=== PATIENT | female | born 1960 | race Caucasian/White ===

== ENCOUNTER 2022-06-21 10:00 | Outpatient (RCR) | payer BC, SELFPAY ==
--- NOTE | 2022-04-24 13:56 | HP.OTEVAL ---
Patient's Visit Information RENE FARRELL is a 61 year old F, referred to Occupational Therapy by Dr. Urbano Hicks MD, with a diagnosis of LT CMC Arthroplasty. Date of Evaluation: 04/24/22 Occupational Therapist: Ada Lopez - Subjective Pt is a 61 y.o female who had R thumb CMC arthroplasty on 04/14/22 d/t primary osteoarthritis of R CMC joint w/ Dr. Hicks in [facility]; failed attempts at conservative management; Pt is retired but she need continues to take care of household maintenance and has hobbies she wishes to return to. She currently has to assist w/ family member in the hospital -she wishes to limit therapy to 1x/week if possible. Pt currently requiring splint post op. - Pain Right Hand 1 Pain Intensity Range: 3 - Objective Pt presents in soft cast and SELVIN wrap. Pt has sutures removed with slightly dried blood around incision; swelling in thenar eminence. - ROM Opposition: 4 ROM Comments: shoulder/elbow WFL; wrist slightly limited d/t pain/stiffness; - Sensation Thumb: CMC 34 IP 46 - Quick DASH-Disab of Arm,Shoulder& Hand Quick DASH Score: 63.6350 - Goals Goal:: Pt will demo rug sizer strength WFL in order to complete self-care tasks; measurements to be added when appropriate Goal:: Pt will improve L thumb opposition to kapanji score 6 Goal:: Pt will report 0/10 pain during light functional tasks Goal:: Pt will demo understanding of ongoing HEP changes to maximize potential and recovery - Rehabilitation General Assessment: Pt presents s/p Lt CMC arthroplasty requiring splint from Dr. Hicks w/ [facility]. Pt presents with slight swelling, pain, and general decreased ROM in wrist and thumb. Pt would benefit from cont. therapy services 1-2x/week for 8 weeks to progress patient through post op protocol and maximize repair and function. Rehabilitation Potential: Excellent - Anticipated Interventions A/AAROM/PROM, Strengthening, Edema Control, Scar Care, Massage, Triggerpoint Release, Wound Care, Modalities, Orthoses, Joint Protection/Energy Conservation, Ergonomic Education, Fine Motor Coord/Demetris, ADL Training, Home Program - Visit Plan Frequency: 1-2x /Week Duration: 8 weeks General Plan: Pt would benefit from cont. therapy services 1-2x/week for 8 weeks to maximize recovery and independence. TEXT: Thank you for the opportunity to evaluate your patient. For Medicare and Medicare HMO plans, please review the plan of care and approve it. It will need to be FAXED BACK to us at [phone] for Medicare purposes. Please let me know if there are questions or concerns regarding this plan of care. Physician Signature: Date:
--- NOTE | 2022-06-08 11:29 | OTREVAL_ITS ---
Dr. Urbano Hicks MD, It has been my pleasure to treat RENE FARRELL over the last 6 visits for LT CMC Arthroplasty. Please see the progress note below for an update on the occupational therapy plan of care! Subjective: pt arrives to OT session 7 weeks and 6 days s/p cmc arthroplasty- pt states she tries to start her truck with a powers and only can turn it 1/2 way-( therapist ed. pt that this could take up to 6 months) -pt states she is still sleeping with her brace because she is comfortable in it- just stiff. Objective/Function: right associate professor of automation strength 35# pt progressing-. right 65/45 left 65/65. right IP 45. right MP 40. right CMC 15. pt continues to make good gains with her ROM and strength- initiation of pinch strength today will cont as pt tolerates. Plan Frequency: 1x/Week Duration: 3 Weeks Visits in this POC: 16 Plan: cont to increase pts strength as trinity. Goals - Goals Patient Goals: Regain Mobility, Regain Strength, Decrease Pain, Decrease Swelling/Stiffness, Improve Fine Motor Skills, Use Hand/Wrist/Arm Normally Again, Increase ROM, Be More Independent in ADLS Goal:: Pt will demo associate professor of automation strength WFL in order to complete self-care tasks; measurements to be added when appropriate Goal:: Pt will improve L thumb opposition to kapanji score 6 Goal:: Pt will report 0/10 pain during light functional tasks Goal:: Pt will demo understanding of ongoing HEP changes to maximize potential and recovery Anticipated Interventions Anticipated Interventions: A/AAROM/PROM, Strengthening, Edema Control, Scar Care, Massage, Triggerpoint Release, Wound Care, Modalities, Orthoses, Joint Protection/Energy Conservation, Ergonomic Education, Fine Motor Coord/Demetris, ADL Training, Home Program Please do not hesitate to contact me at [phone] by phone or if you have questions or concerns regarding this new plan of care! Sincerely, Karyn Paris, OTR/L, CHT
--- NOTE | 2022-06-21 10:23 | HP.OTDCSUM ---
It has been my pleasure to treat RENE FARRELL under orders from Dr. Urbano Hicks MD, for the diagnosis of LT CMC Arthroplasty for a total of 7 visit(s). Please see the following information for a summary of their discharge status. % Improvement: 85 Objective/Function: right quality process lead strength 35# pt progressing-. right 65/45 left 65/65. right IP 45. right MP 40. right CMC 15. pt continues to make good gains with her ROM and strength- initiation of pinch strength today will cont as pt tolerates. Patient Goals: Regain Mobility, Regain Strength, Decrease Pain, Decrease Swelling/Stiffness, Improve Fine Motor Skills, Use Hand/Wrist/Arm Normally Again, Increase ROM, Be More Independent in ADLS Goal:: Pt will demo quality process lead strength WFL in order to complete self-care tasks; measurements to be added when appropriate Goal:: Pt will improve L thumb opposition to kapanji score 6 Goal:: Pt will report 0/10 pain during light functional tasks Goal:: Pt will demo understanding of ongoing HEP changes to maximize potential and recovery Plan: d/c Discharge Comments: Pt was seen for 7 OT sessions following a right CMC arthroplasty. Pt has met OT goals and is d/c with HEP- of joint protection, thumb stabilization ex. and ad. eq. as needed- pt agrees with D/C If there are questions or concerns regarding this patient's occupational therapy, please fell free to call me at [phone]. Thank you for the referral of this patient. Sincerely, Karyn Paris, OTR/L, CHT
== END 2022-06-21 12:47 | disposition home or self-care (01) ==
LOC: OT 10:00
PROVIDERS: Referring Provider Orthopaedic Surgery; Visit Provider Orthopaedic Surgery
DX: M18.11 Unilateral primary osteoarthritis of first carpometacarpal joint, right hand (principal)
CPT/HCPCS: 97110; 97140; 97165; 97530; 97760